=== PATIENT | male | born 1990 | race American Indian/Alaskan Native ===

== ENCOUNTER 2019-06-02 12:18 | Emergency (ER) | payer OTHER | END 2019-06-02 13:27 | disposition home or self-care (01) | LOC: JERFT 12:18 ==

== ENCOUNTER 2023-12-09 15:07 | Emergency (ER) | payer OTHER ==
[2023-12-09 15:31] VITALS: BP 101/67; PULSE 98; RESP 20; TEMP 99.2; BMI 29.2
[2023-12-09] MEDS ORDERED: ACETAMINOPHEN 500 MG TABLET (FP) PO ONE (16:08)
[2023-12-09] MEDS ORDERED: ACETAMINOPHEN 500 MG TABLET (FP) ONE (16:42)
== END 2023-12-09 16:52 | disposition home or self-care (01) ==
LOC: JERFT 15:07
DX: M79.10 Myalgia, unspecified site (principal); R50.9 Fever, unspecified; R05.9 Cough, unspecified; J10.1 Influenza due to other identified influenza virus with other respiratory manifestations; Z20.822 Contact with and (suspected) exposure to COVID-19
CPT/HCPCS: 0241U-QW; 99283-25